=== PATIENT | female | born 1935 | race Caucasian/White ===

== ENCOUNTER → 2016-12-09 07:47 | Outpatient (CLI) | payer MEDICARE ==
[2016-07-17 13:24] VITALS: BMI 27.4
[~2016-12-09 07:47] MED LIST: AFRIN15 ML NS; ARTIFICIAL TEAR15 ML EACH EYE; ASMANEX0.135 GM INH; ASPIRIN 81 MG E81 MG PO; ATIVAN0.5 MG PO; ATIVAN1 MG PO; BAYER CHEWABLE81 MG PO; BENADRYL25 MG PO; BENICAR20 MG PO; BISCOLAX10 MG/SUPP RC; BUMEX 1 MG TAB1 MG PO; BUMEX2 MG PO; BUSPAR10 MG PO; BUSPIRONE HCL7.5 MG PO; CARDIZEM CD180 MG PO; CELEXA20 MG PO; CLARITIN 10 MG10 MG PO; COLACE100 MG PO; CYMBALTA60 MG PO; DEPAKOTE SPRIN125 MG PO; DEPAKOTE250 MG PO; DEXTROSE 50%/WA50 ML IV; DULCOLAX10 MG/SUPP RC; DUONEB 2.5-0.5 M3 ML UPD; DURAGESIC1 PATCH .1 TRANSDERM; DURAGESIC1 PATCH .4 TD; DURAGESIC1 PATCH .7 TD; EFFEXOR75 MG PO; FLAGYL 500500 MG/100 IV; FLAGYL500 MG; FLAGYL500 MG PO; FLORANEX / LACT1 TAB; FLORANEX / LACT1 TAB PO; GAS-X80 MG PO; GLUCAGON1 MG/KIT IM; GLUCAGON1 MG/KIT SQ; GUAIFENESI100 MG/5 M PO; HALDOL5 MG PO; HUMALOG 30100 UNITS/ SC; HYDROCODON-ACE1 EAC7 PO; HYDROCODONE-APA1 TAB PO; INSTA-GLUCOSE31 GM PO; IPRAT-ALBUT 0.5-3 ML NEB; IPRAT-ALBUT 0.5-3 ML UPD; K-DUR20 MEQ PO; KLONOPIN0.5 MG PO; KLOR-CON 1010 MEQ PO; LASIX40 MG PO; LEVAQUIN500 MG PO; LEVOTHROID200 MCG PO; LEVSIN/ANASP0.125 MG PO; LIDODERM 5 %1 PATCH TD; LIDODERM 5 %1 PATCH TRANSDERM; LIPITOR40 MG PO; LISINOPRIL10 MG PO; LOPRESSOR25 MG PO; LOVENOX30 MG/0.3 SQ; MAG-OX 400 MG400 MG PO; MAG-OXIDE400 MG PO; MEDI-NATURAL8.6 MG PO; MILK OF MAGNESI30 ML PO; MIRALAX17 GM PO; MIRAPEX0.25 MG PO; MIRAPEX1 MG PO; MOBIC7.5 MG PO; MUCINEX DM ER1 EAC1 PO; MUCINEX600 MG PO; MULTIPLE VITAMI1 TA1 PO; MYSOLINE 50 MG50 MG PO; NATURAL SENNA8.6 MG PO; NEURONTIN 300300 MG PO; NITRO-BID60 GM TP; NORCO 10/325 TA1 TA1 PO; NORCO 5/325 TAB1 TA1 PO; NORCO 7.5/325 T1 TA1 PO; NORVASC2.5 MG PO; NORVASC5 MG PO; OMNICEF300 MG PO; ONDANSETRON4 MG/2 M3 IV; OXYBUTYNIN CHLOR5 MG PO; OYSTER SHELL C1 EAC1 PO; PEPCID20 MG PO; PEPCID40 MG PO; PERFOROMIS20 MCG/21 INH; PLAVIX75 MG PO; PRAVACHOL20 MG PO; PRAVASTATIN SOD10 MG PO; PREDNISONE20 MG PO; PROTONIX40 MG PO; PROVENTIL HFA6.7 GM INH; PROVENTIL/2.5 MG/3 M INH; PROZAC40 MG PO; PULMICORT0.5 MG/21 UPD; REMERON15 MG PO; REQUIP1 MG PO; SALINE FLUSH10 ML IV; SENOKOT-S TABLE1 TAB PO; SEROQUEL25 MG PO; SINGULAIR10 MG PO; SODIUM CHLORIDE INH; SODIUM CL 0.91000 ML IV; STERAPRED DS 1210 MG NG; SYNTHROID100 MCG PO; SYNTHROID175 MCG PO; SYNTHROID200 MC1 PO; TESSALON PERLE100 MG PO; TUSSIONEX 5 ML S5 ML PO; ULTRACET TABLET1 TAB PO; ULTRAM50 MG PO; VIBRAMYCIN 100100 MG PO; VITAMIN B-121000 MCG PO; VITAMIN B-1250 MCG PO; VITAMIN D31000 UNI2 PO; VITAMIN D31000 UNIT PO; VITAMIN D5000 UNIT PO; XANAX0.5 MG PO; XANAX1 MG PO; ZESTRIL10 MG PO; ZESTRIL40 MG PO; ZOCOR10 MG PO; ZOFRAN4 MG PO; ZYLOPRIM100 MG PO; ZYPREXA2.5 MG PO
== END | disposition home or self-care (01) ==
LOC: D.CT 07:47
DX: R91.8 Other nonspecific abnormal finding of lung field (principal)

== ENCOUNTER → 2016-12-13 12:49 | Outpatient (CLI) | payer MEDICARE ==
[2016-07-17 13:24] VITALS: BMI 27.4
== END | disposition home or self-care (01) ==
LOC: D.RAD 11:00
DX: J44.9 Chronic obstructive pulmonary disease, unspecified (principal)

== ENCOUNTER → 2016-12-28 19:39 | Outpatient (CLI) | payer MEDICARE ==
[2016-07-17 13:24] VITALS: BMI 27.4
== END | disposition home or self-care (01) ==
LOC: D.SLEEP 19:39
DX: G47.33 Obstructive sleep apnea (adult) (pediatric) (principal)

== ENCOUNTER 2017-08-04 16:18 | Inpatient (IN) | payer MEDICARE ==
--- NOTE | 2017-08-04 17:45 | NUR ---
PATIENT ADMITTED TO [facility] AT 1730 THIS EVENING, SHE IS PLEASANT, SHE SAYS "I DON'T KNOW WHY I AM HERE, I GUESS THEY ARE JUST MAD AT ME." PATIENT THEN SAYS "WELL THEY WANTED TO MOVE ME AND I WAS FINE WHERE I WAS." PATIENT IS ADMITTED FRO AGGRESSION SHE APPARENTLY SCRATCHED ONE OF THE NURSES AND SHE BEGAN CURSING AND THREATENING TO HURT STAFF AND THREATENED TO RUN OFF TONIGHT. PATIENT DOES HAVE BRUISES TO HER RIGHT ARM AND A SKIN TEAR WITH A BAND AID ON HER LEFT WRIST. HER LEFT LEG HAS A BRUISE AND SHE HAS BILATERAL LOWER EDEMA PRIMARILY TO HER FEET AND ANKLES, LUZ BUTTOCKS AND BACK ARE CLEAR, NO SKIN ISSUES NOTED. PATIENT DID NOT COME WITH GLASSES, SHE DOES HAVE UPPER DENTURES ONLY.
[2017-08-04] MEDS ORDERED: VISINE15 ML EACH EYE (18:22)
[2017-08-04] MEDS ORDERED: FLUTICASONE PRO16 GM NASAL (18:24)
[2017-08-04] MEDS ORDERED: ATIVAN1 MG PO (18:25)
[2017-08-04] MEDS ORDERED: ANORO ELLIPTA1 EACH INH (18:29)
[2017-08-04 18:30] LABS: APPEARANCE CLEAR (CLEAR); BACTERIA MODERATE /hpf (NONE SEEN); BILIRUBIN NEGATIVE (NEGATIVE); COLOR YELLOW (YELLOW); GLUCOSE NEGATIVE (NEGATIVE); KETONE NEGATIVE (NEGATIVE); MUCUS <1+ /lpf (NONE SEEN); NITRITE NEGATIVE (NEGATIVE); PROTEIN NEGATIVE (NEGATIVE); RED CELLS - URINE 0-5 /hpf (0-5); SPECIFIC GRAVITY 1.015 (1.005-1.020); UROBILINOGEN NORMAL (NORMAL)
[2017-08-04 18:31] LABS: HYALINE CAST OCC /lpf (NONE SEEN)
[2017-08-04] MEDS ORDERED: MIRALAX17 GM PO (18:33)
[2017-08-04] MEDS ORDERED: MIRAPEX0.5 MG PO (18:34)
[2017-08-04] MEDS ORDERED: MUCINEX DM ER1 EAC1 PO (18:36)
[2017-08-04] MEDS ORDERED: HYDROCODONE-APA1 TAB PO (18:37)
[2017-08-04] MEDS ORDERED: OXYBUTYNIN CHLOR5 MG PO (18:38)
[2017-08-04] MEDS ORDERED: K-DUR20 MEQ PO (18:42)
[2017-08-04] MEDS ORDERED: PRAVACHOL20 MG PO (18:43)
[2017-08-04] MEDS ORDERED: PROTONIX40 MG PO (18:47)
[2017-08-04] MEDS ORDERED: TUMS500 MG PO (18:52)
[2017-08-04] MEDS ORDERED: ACETAMINOPHEN325 MG PO (18:53)
[2017-08-04] MEDS ORDERED: XARELTO20 MG PO (18:54)
[2017-08-04] MEDS ORDERED: VENTOLIN HFA18 GM INH (19:02)
[2017-08-04 19:11] VITALS: BP 135/70; BMI 25.8
[2017-08-04 19:29] LABS: BASOPHILS 0.1 % (0-2); EOSINOPHILS 1.5 % (0-7); HEMATOCRIT 35.7 % (36.0-48.0); HEMOGLOBIN 11.4 g/dL (12-16); IMMATURE GRANULOCYTES 0.1 % (0-5); LYMPHOCYTES 15.9 % (15-50); MCH 31.7 pg (26.0-34.0); MCHC 31.9 g/dL (31.0-37.0); MCV 99.2 fL (80.0-100.0); MONOCYTES 5.5 % (2-11); NEUTROPHILS 76.9 % (40-80); PLATELET COUNT 273 10x3/uL (130-400); RDW 15.7 % (11.5-14.5)
[2017-08-04 19:41] LABS: HEMOGLOBIN A1C 5.7 % (4.8-6.0)
[2017-08-04 19:51] LABS: ALBUMIN 3.8 g/dL (3.4-5.0); ANION GAP 12.6 mmol/L (8-16); BILIRUBIN - TOTAL 0.33 mg/dL (0.2-1.3); CARBON DIOXIDE 27.8 mmol/L (21.0-32.0); CHOL - HDL RATIO 2.2 ratio (2.3-4.1); CREATININE - SERUM 1.5 mg/dL (0.6-1.3); LDL-HDL RATIO 0.9 ratio (1.5-3.5); POTASSIUM - SERUM 4.4 mmol/L (3.5-5.1); PROTEIN - SERUM 6.9 g/dL (6.4-8.2); THYROID STIMULATING HORMONE 4.89 uIU/mL (0.36-3.74)
[2017-08-04 19:56] VITALS: BP 125/72
--- NOTE | 2017-08-05 04:23 | NUR ---
B) Patient is alert and oriented to self, complained of back pain and tried to put herself in the floor so she could lay down, anxious and restless, I) Administered scheduled medications, PRN [place] given at HS for back pain, redirected to lay on the couch not the floor, R) Medication compliant, very confused and needing constant monitoring for falls and safety. P) Continue plan of care.
[2017-08-05 06:43] VITALS: BMI 25.8
[2017-08-05 09:30] VITALS: BP 140/73
--- NOTE | 2017-08-05 09:37 | NUR ---
B) PATIENT IS UPSET, CRYING AND COMPLIANING THAT HER BACK HURTS, SHE DOESN'T WANT TO SIT IN THE RECLINER, SHE IS SAYING SHE WANTS TO SEE SOMEONE TO HELP HER, SHE SAYS "THEY MOVED ME OUT OF MY ROOM BECAUSE THEY WANTED MY ROOM" NO EXPLAINATION ABOUT GETTING ANOTHER ROOM CONSOLES HER, SHE IS DISTRAUGHT AND HAS HERSELF WORKED UP. PATIENT SELF PROPELS IN A W/C. I) PROVIDED PATIENT WITH A iCouch 10 PO NOW, WILL MONITOR. R) REMOVED PATIENT TO DINING ROOM SHE WAS GETTING LOUDER AND LOUDER WITHOUT BEING CONSOLED. PATIENT IS WITHIN EYE VIEW OF STAFF, PATIENT IS IN THE LINH CHAIR SO SHE CAN TRY TO RELAX AFTER PAIN MED. P) CONTINUE POC.
[2017-08-05 10:40] VITALS: BMI 25.7
[2017-08-05 19:58] VITALS: BP 92/54
--- NOTE | 2017-08-06 04:38 | NUR ---
B) Patient is alert and oriented to self and being in a hospital, complains of back pain and wanting to lay down, I) Administered scheduled medications, monitored for falls and for safety, redirected as needed. R) Medication compliant, needy and attention seeking at time, very concern whith her pain and condition. P) Continue plan of care,
--- NOTE | 2017-08-06 05:25 | NUR ---
PRN Tylenol 650 mg given for arm pain at 0500, patient upset she could not have [place].
[2017-08-06 06:13] LABS: RAPID PLASMA REAGIN Non Reactive (Non Reactive)
[2017-08-06 07:23] LABS: FOLATE (FOLIC ACID) - SERUM 4.4 ng/mL (>3.0)
--- NOTE | 2017-08-06 09:38 | NUR ---
B) PATIENT REFUSED HER MEDICATION THIS AM, SHE IS TRYING TO MANIPULATE STAFF TO GET WHAT SHE WANTS. SHE SAYS HER BACK HURTS THEN DOES NOT WANT WHAT SHE HAS ORDERED. SHE SAYS SHE WANTS TO LAY DOWN, BUT STAFF OFFER HER THE GERICHAIR AND SHE REFUSES. PATIENT CAN SELF PROPEL AND SHE CAN SLIDE HERSELF FROM THE CHAIR TO THE FLOOR. I) PROVIDE PRESCRIBED MEDS. R) PATIENT IS NONCOMPLIANT WITH MEDS TODAY. P) CONTINUE POC.
[2017-08-06 09:50] VITALS: BP 124/60
--- NOTE | 2017-08-06 12:17 | PSY ---
PATIENT NAME:ROSA MONREAL MEDICAL RECORD: [id number] : 31 LOCATION:[facility] ADMISSION DATE: 08/04/17 ACCOUNT: [id number] PSYCHIATRIC EVALUATION DATE OF EVALUATION: 08/05/17 Psychiatric Evaluation IDENTIFYING DATA: The patient is 82 years old and she is admitted to the hospital on a voluntary basis. CHIEF COMPLAINT: Aggression. HISTORY OF PRESENT ILLNESS: The patient lives in a local care home. She became agitated and scratched and clawed the nurse. They referred her to us because of that agitation. The patient reports a lot of restlessness and back pain and she is upset and crying, but she denies that she hit or scratched or attacked anyone. She denies psychotic symptoms. PAST MEDICAL HISTORY: Significant for hypertension, COPD, chronic back pain, asthma, congestive heart failure, angioplasty and atrial fibrillation. PAST PSYCHIATRIC HISTORY: Significant for depression and chronic anxiety. She also carries a diagnosis of dementia that I think is new, I am not sure when or how that was made. ALLERGIES: SULFA. CURRENT MEDICATIONS: Include Synthroid, Protonix, various inhalers, Bumex, Xarelto, Ditropan, MiraLax, gabapentin, Pravachol and metoprolol. SOCIAL HISTORY: The patient is . She is 82 years old. She does have adult family members who are involved with her care. She denies any history of substance abuse. It is unclear how well she functioned socially and occupationally. MENTAL STATUS EXAMINATION: The patient is awake, alert and oriented to person, place and somewhat to time and situation. Her mood is anxious. Her affect is constricted. Thought processes are very circumstantial and she is unable or unwilling to cooperate with formal mental status testing. Based on the interaction, I would deem her memory, concentration and abstraction abilities to be at least moderately impaired. She currently is denying any thoughts of harming herself or others and she denies psychotic symptoms. ASSETS: Stable living environment. LIABILITIES: Limited insight. DIAGNOSTIC IMPRESSION: AXIS I: Major depression, moderate severity without psychotic features, and vascular dementia. AXIS II: Deferred. AXIS III: Coronary artery disease, atrial fibrillation, congestive heart failure, hypothyroidism, hypertension and chronic obstructive pulmonary disease. AXIS IV: Moderate stressors. AXIS V: Global assessment of functioning is 35. PLAN: At this time, the patient is admitted to the hospital for a comprehensive medical, psychological, and social evaluation. She will be treated with both mood stabilizing and memory enhancing medications. Her long-term prognosis is guarded. TRANSINT:[id number] Voice Confirmation ID: [id number] DOCUMENT ID: [id number] IJEOMA MARX MD at 1217 CC: [id number] DICTATION DATE: 08/05/17 1225 HEALTH AND WELLNESS COACH: 08/05/17 1340 ADM IN [place] [id number] [place] [id number]
--- NOTE | 2017-08-06 15:44 | NUR ---
PATIENT REFUSED HER 1500 MEDS, EXPLAINED ONE PILL WAS FOR HER NREVES AND THE OTHER WAS FOR PAIN. NOW I HEAR PATIENT SAYING "OH, MY BACK." SHE IS STAYING BUSY DOING WORD FIND AND PLAYING THE GAME [employer].
--- NOTE | 2017-08-06 18:30 | NUR ---
PATIENT DID TAKE HER XARALTO THIS PM, BUT NO OTHER MEDS, SHE IS TEARFUL, SHE TRIED TO MAKE A PHONE CALL, BUT NO ONE ANSWERED, SHE IS UPSET ABOUT BEING MOVED OUT OF HER ROOM AT [facility], NO AMOUNT OF EXPLAINING AND TRYING TO CONSOLE HAS BEEN OF BENEFIT. NOW SHE IS SAYING SHE WANTS TO HIRE A GREENSKEEPER HER KIDS ARE TAKING ALL OF HER MONEY AND LIVING OFF OF HER. SPOKE WITH PATIENT THAT SHE DID NOT NEED TO GET HERSELF WORKED UP ABOUT IT THAT EVERYTHING WILL WORK OUT, SHE DID CALM SLIGHTLY.
[2017-08-06 20:37] VITALS: BP 110/58
[2017-08-06 20:55] VITALS: BP 110/58
--- NOTE | 2017-08-07 04:33 | NUR ---
B) Patient alert and oriented to self, restless at times wanting to return to bed and lay down, I) Administered scheduled medications, repositioned in bed for comfort, redirected as needed, R) Medication compliant, calmer this shift, resting quietly in bed. P) Continue plan of care.
[2017-08-07 07:00] VITALS: BP 127/61
--- NOTE | 2017-08-07 10:38 | NUR ---
ATIVAN 0.5MG IM TO RT.OUTER THIGH GIVEN FOR ANXIETY,CRYING,TEARS ON CHEEKS AND TRING TO SCOOT OUT OF RECLINER.
--- NOTE | 2017-08-07 14:58 | NUR ---
IS ORIENTED TO SELF AND HOSPITAL.CALM,RESTING QUIETLY THIS AFTERNOON BUT WAS VERY TEARFUL AND C/O OF PAIN THIS AM,HAD GOOD RESPONSE TO TRAMADOL AND ATIVAN.WILL CONTINUE WITH PLAN OF CARE,MONITOR FOR CHANGES AND SAFETY.IS COMPLIANT WITH MEDS.
[2017-08-07 20:07] LABS: VITAMIN D 25 HYDROXY 39.6 ng/mL (30.0-100.0)
[2017-08-07 20:50] VITALS: BP 124/95
--- NOTE | 2017-08-07 21:29 | NUR ---
RECEIVED IN HALLWAY SITTING OUTSIDE OF NURSES STATION WITH PEERS AT HER SIDE. CALM AND COOPERATIVE WITH CARE AND ASSESSMENTS. NO SIGNS OF AGGRESSION. ENCOURAGE TO EXPRESS NEEDS. RESTING EYES IN BED EYES CLOSED AT THIS TIME. CONTINUE PLAN OF CARE
--- NOTE | 2017-08-07 22:59 | NUR ---
Patient has been screaming out, complaining of bilateral leg pain. Yelling out the pain is so bad she can't sleep. Given Tylenol 650mg po PRN for pain 10+/10, given Ativan 0.5mg po PRN and Haldol 2mg po PRN for out of control verbal yelling and increasing anxiety. Will monitor for effectiveness.
[2017-08-08 06:57] LABS: HEMOGLOBIN 11.1 g/dL (12-16)
[2017-08-08 07:00] VITALS: BP 111/48
--- NOTE | 2017-08-08 13:00 | NUR ---
ASSESSMENT COMPLETED. MEDICATION COMPLIANT. CONTINUE PLAN OF CARE.
--- NOTE | 2017-08-08 13:45 | PN ---
PATIENT:ROSA MONREAL MEDICAL RECORD: [id number] LOCATION:[facility] ADMISSION DATE: 08/04/17 PROGRESS NOTE DATE OF SERVICE: 08/06/2017 SUBJECTIVE: The patient's case was discussed with staff. She has no new complaint. OBJECTIVE: The patient denies intent to harm herself or others. She is reporting a lot of back pain, but she went and took her morning medicines. She cannot seem to comprehend the inconsistency there and is still quite agitated. ASSESSMENT: No change in diagnoses. PLAN: It is difficult to address her symptoms and medicate them appropriately when she will only take her medicines intermittently. In fact, difficult is not the right word, it is impossible. I have tried to explain this to her as have the nursing staff. I worked with her in any way that is reasonable. I want to help her. Unfortunately, she just simply is not following through with what I am wanting to do. ASSESSMENT: No change in diagnoses. PLAN: Current medicines have been reviewed and will be maintained. extermination inspector prognosis is guarded. TRANSINT:[id number] Voice Confirmation ID: [id number] DOCUMENT ID: [id number] IJEOMA MARX MD at 1345 CC: [id number] DICTATION DATE: 08/06/17 1259 DATA MINER: 08/06/17 2030 ADM IN [place] [id number] [place] [address]
[2017-08-08 19:31] VITALS: BP 139/75
--- NOTE | 2017-08-08 23:34 | NUR ---
RECEIVED IN DAYROOM. SITTING IN WHEELCHAIR. ATTENTION SEEKING. PUT SELF INTO FLOOR. DEMANDING AMBULANCE TO BE CALLED. STATING SHE DOES NOT WANT TO STAY HERE. REFUESED TO ASSIST IN STANDING. HOLDING ONTO BOTTOM OF SOFA TO KEEP SELF ON FLOOR. STAFF LIFTED PATIENT FROM FLOOR INTO RECLINER. REDIRECT AND REORIENT NEEEDED. CONTINUE PLAN OF CARE.
--- NOTE | 2017-08-09 00:01 | NUR ---
PATIENT REFUSED PM MEDICATIONS . ENCOURAGEED TO TAKE MEDICATIONS BY MED NURSE BUT CONTINUED TO REFUSE
--- NOTE | 2017-08-09 01:10 | NUR ---
YELLING OUT IN BED. BECOMING INCREASINGLY ANXIOUS. ATTEMPTED TO GIVE PO ATIVAN, HALDOL, AND TYLENOL BUT REFUSED PO MEDICATIONS.
--- NOTE | 2017-08-09 01:27 | NUR ---
YELLING OUT. ATTEMPTING TO PUT HERSELF INTO FLOOR. PRN ATIVAN 0.5 MG IM AND PRN HALDOL 2 MG IM GIVEN FOR INCREASING ANXIETY AND PSYCHOTIC BEHAVIOURS.
[2017-08-09 09:21] VITALS: BP 116/54
--- NOTE | 2017-08-09 11:49 | NUR ---
oriented to person, place, and time. no aggression noted. pt is guarded at times but will answer questions when asked. pt c/o tiredness today and blood pressure is low. lopressor held. compliant with medications. fall precautions maintained. will continue to monitor and continue with plan of care.
--- NOTE | 2017-08-09 14:04 | PN ---
PATIENT:ROSA MONREAL MEDICAL RECORD: [id number] LOCATION:[facility] ADMISSION DATE: 08/04/17 PROGRESS NOTE DATE OF SERVICE: 08/08/2017 SUBJECTIVE: The patient's case was discussed with staff. She has no new complaint. OBJECTIVE: The patient is in poor behavioral control, very difficult to redirect and with limited insight. ASSESSMENT: No change in diagnoses. PLAN: The patient is going to be given Seroquel at a dose of 25 mg twice daily. Seroquel is being used to treat her underlying psychotic agitation. She will be monitored for clinical changes associated with its use. TRANSINT:[id number] Voice Confirmation ID: [id number] DOCUMENT ID: [id number] IJEOMA MARX MD at 1404 CC: [id number] DICTATION DATE: 08/08/17 1409 SCORER HELPER: 08/08/17 1435 ADM IN [place] [id number] [place] [address]
[2017-08-09 20:00] VITALS: BP 125/90
--- NOTE | 2017-08-09 20:57 | NUR ---
RECEIVED IN DAYROOM. SITTING IN RECLINING CHAIR. SOCIALIZING WITH A PEER AT TIMES. CALM AND COOPERATIVE WITH CARE AND ASSESSMENTS. NO SIGNS OF AGGRESSION. REDIRECT AND REORIENT NEEDED. RESTING IN BED EYES CLOSED AT THIS TIME. CONTINUE PLAN OF CARE
--- NOTE | 2017-08-09 23:00 | NUR ---
YELLING OUT. CONFUSED. ATTEMPT TO REDIRECT AND REORIENT BUT UNABLE. CONTINUES TO YELL OUT BECOMING INCREASINGLY ANXIOUS. PRM ATIVAN 0.5 MG IM AND HALDOL 2 MG IM GIVEN.
[2017-08-10 09:23] VITALS: BP 107/52
--- NOTE | 2017-08-10 11:56 | NUR ---
PT WAS VERY LETHARGIC THIS MORNING AND ALL MEDICATIONS WERE HELD DUE TO INABILITY OF PT TO STAY AWAKE TO TAKE MEDICATIONS. PT BEGAN TO WAKE UP SHE BECAME VERY TEARFUL AND CRYING WITH INCREASED ANXIETY. ATTEMPTED TO USE COPING SKILLS MULTIPLE TIMES WITHOUT ANY SUCCESS. PT WAS GIVEN A PO ATIVAN FOR HER ANXIETY. PT THANKED ME FOR THE MEDICATION. FALL PRECAUTIONS MAINTAINED. WILL CONTINUE TO MONITOR AND CONTINUE WITH PLAN OF CARE.
[2017-08-10 20:00] VITALS: BP 139/71
--- NOTE | 2017-08-11 02:44 | NUR ---
B) Patient is alert and oriented to self, attention seeking and needy, yelling out at times, I) Administered scheduled medications, monitored for safety R) Medication compliant, restless at times, P) Continue plan of care.
[2017-08-11 10:41] VITALS: BP 108/50
--- NOTE | 2017-08-11 12:49 | NUR ---
B) PATIENT HAS BEEN MORE COMPLIANT THIS AM, SHE IS AWAKE AND TAKING HER MEDS, SHE IS TRYING TO DRINK A LITTLE MORE FLUIDS. SHE HAS NOT YELLED OUT OR BEEN CRYING TODAY, SHE DID ASK FOR A PAIN PILL TWO HOURS AFTER SHE HAD ONE, BUT DID EXPLAIN THAT SHE CAN ONLY HAVE A PAIN PILL AT SCHEDULED TIMES, BUT THAT I WOULD BRING IT AT THE TIME IT IS DUE. SHE WAS OK WITH THIS STATEMENT, SHE DID NOT ARGUE, YELL OR CRY AT THIS TIME. I) PROVIDE PRESCRIBED MEDS. R) PATIENT IS COMPLIANT WITH MEDS, SHE INTERACTING MINIMALLY TODAY. P) CONTINUE POC.
--- NOTE | 2017-08-11 14:00 | NUR ---
RD follow up note. chart reviewed Decrease po intake on megace, b12, bumex, synthroid, bisacodyl. wt stable REC: offer supplement at meals, MVI with mineral. RD to follow
--- NOTE | 2017-08-11 14:10 | NUR ---
PATIENTS SON CALLED AND SAID HE COULD NOT VISIT HE HAS HAD THE STOMACH VIRUS SINCE TUESDAY. ASKED HIM TO PLEASE STAY HOME TO GET WELL AND NOT SPREAD THE VIRUS. HE ASKED ME TO TELL THE PATIENT THAT HE IS SORRY, BUT HE IS SICK. EXPLAINED TO HIM THAT I WOULD TELL HER.
--- NOTE | 2017-08-11 15:53 | NUR ---
WHILE PASSING MEDICATION TO PATIENT DID LET HER KNOW THAT HER SON IS NOT ABLE TO VISIT DUE TO A STOMACH VIRUS. PATIENT SAID "OH, I HOPE HE DOES NOT LOSE HIS SCHOLARSHIP" EXPLAINED TO HER THAT I BET HE WOULD NOT LOSE A SCHOLARSHIP, THAT HE IS SICK AND WANTED ME TO TELL HER HE LOVES HER AND DID NOT WANT HER TO FEEL NEGLECTED. PATIENT VERBALIZED UNDERSTANDING AND SAID "THANK YOU FOR TELLING ME."
[2017-08-11 20:02] VITALS: BP 106/53
--- NOTE | 2017-08-12 03:45 | NUR ---
B) Patient is alert and oriented to self and being in a hospital, calm and cooperative with care, I) Administered scheduled medications, PRN Tylenol 650 mg PO given for SIFUENTES at 01:13, R) Medication compliant, yells out at night at times P) Continue plan of care.
[2017-08-12 08:31] VITALS: BP 114/54
--- NOTE | 2017-08-12 11:57 | NUR ---
PT CONTINUES TO BE RESTLESS AND DEMANDING. NO AGGRESSION. NOTED. PT DOES HAVE PERIODS OF CRYING SPELLS. PT GETS UPSET WHEN SHE DOES NOT GET WHAT SHE WANTS. REDIRECTION DONE WHEN NEED TO APPROPRIATE BEHAVIOR. PT HAS LIMITED INSIGHT INTO REDIRECTION. FALL PRECAUTIONS MAINTAINED. WILL CONTINUE TO MONITOR AND CONTINUE WITH PLAN OF CARE.
[2017-08-12 19:30] VITALS: BP 112/58
--- NOTE | 2017-08-13 04:18 | NUR ---
B) Patient alert and oriented to self and hospital, calm and cooperative this shift, no yelling out at night noted this shift, I) Administered scheduled medications, monitored for safety R) Medications compliant, cooperative with staff, P) Continue plan of care.
[2017-08-13 08:00] VITALS: BP 105/50
--- NOTE | 2017-08-13 16:21 | NUR ---
ORIENTED TO PERSON,HOSPITAL,AND MONTH.NO SIGNS OF AGGRESSION OBSERVED TODAY.STATES BACK FEELS BETTER SITTING IN RECLINER.WILL CONTINUE WITH PLAN OF CARE,MONITOR FOR CHANGES AND SAFETY.IS COMPLIANT WITH MEDS.PROPELLS SELF IN WC.
[2017-08-13 19:30] VITALS: BP 134/60
--- NOTE | 2017-08-14 02:46 | NUR ---
B) Patient alert and oriented to self and hospital, restless and impatient at times, I) Administered scheduled medications, monitored for falls and safety R) Medications compliant, resting quietly in bed, P) Continue plan of care.
[2017-08-14 07:47] VITALS: BP 127/77
--- NOTE | 2017-08-14 18:16 | NUR ---
ORIENTED TO PERSON,HOSPITAL AND MONTH.NO AGGRESSION OBSERVED.COMPLIANT WITH MEDS AND STAFF.WILL CONTINUE WITH PLAN OF CARE,MONITOR FOR CHANGES AND SAFETY.
[2017-08-14 19:30] VITALS: BP 112/57
--- NOTE | 2017-08-14 21:01 | NUR ---
RECEIVED IN DAYROOM. SITTING IN RECLINING CHAIR. WITH PEERS AT HER SIDE. NOT SOCIALIZING AT THIS TIME. CALM AND COOPERATIVE WITH CARE AND ASSESSMENTS. NO SIGNS OF AGGRESSION. REDIRECT AND REORIENT NEEDED. CONTINUES TO SIT QUIETLY IN RECLINER. CONTINUE PLAN OF CARE
[2017-08-15 08:50] VITALS: BP 116/56
--- NOTE | 2017-08-15 10:33 | NUR ---
ORIENTED TO PERSON AND PLACE. PT DID GET TEARFUL DURING ASSESSMENT BUT POSITIVE REINFORCEMENT GIVEN. NO AGGRESSION NOTED. MEDICATIONS GIVEN ORDERED. FALL PRECAUTIONS MAINTAINED. WILL CONTINUE TO MONITOR AND CONTINUE WITH PLAN OF CARE.
[2017-08-15 19:53] VITALS: BP 118/58
--- NOTE | 2017-08-15 21:36 | NUR ---
RECEIVED IN DAYROOM. SITTING IN A RECLINER WITH PEERS AT HER SIDE. SOCIALIZING AT TIMES. CALM AND COOPERATIVE WITH CARE AND ASSESSMENTS. NO SIGNS OF AGGRESSION. REDIRECT AND REORIENT NEEDED. RESTING EYES CLOSED AT THIS TIME. CONTINUE PLAN OF CARE
[2017-08-16 07:00] VITALS: BP 119/41
--- NOTE | 2017-08-16 11:04 | NUR ---
B) PATIENT AWAKENS THIS AM CRYING AND YELLING, SAYING "YOU LIED TO ME" SHE ASKED DIRECTOR ORACLE DATABASE TO HELP SHE SAYS "I'M FALLING OUT OF THE BED" THEY SAID THEY CHECKED ON HER AND SHE IS LAYING IN THE MIDDLE OF THE BED AND NOT FALLING OUT. PATIENT NOW IS SITTING UP IN A LINH CHAIR, SHE IS WATCHFUL, BUT SHE IS NOT CRYING OR COMPLAINING. PATIENT CAN SELF PROPEL IN A W/C WHEN SHE IS IN ONE. I) PROVIDE PRESCRIBED MEDS. R) CONTINUE POC.
--- NOTE | 2017-08-16 13:38 | PN ---
PATIENT:ROSA MONREAL MEDICAL RECORD: [id number] LOCATION:[facility] ADMISSION DATE: 08/04/17 PROGRESS NOTE DATE OF SERVICE: SUBJECTIVE: The patient's case was discussed with staff. She has no new complaint. OBJECTIVE: The patient continues to yell and be quite agitated. She has very limited insight about her condition. ASSESSMENT: No change in diagnoses. PLAN: Supportive and educational interventions were made. The patient's long-term prognosis is guarded. I am going to increase her Seroquel to 25 mg 3 times daily in an effort to treat her underlying agitation. TRANSINT:[id number] Voice Confirmation ID: [id number] DOCUMENT ID: [id number] IJEOMA MRAX MD at 1338 CC: [id number] DICTATION DATE: 08/10/17 1257 PAPER CONE MACHINE OPERATOR: 08/10/17 1435 ADM IN [place] [id number] [place] [id number]
--- NOTE | 2017-08-16 13:38 | PN ---
PATIENT:ROSA MONREAL MEDICAL RECORD: [id number] LOCATION:[facility] ADMISSION DATE: 08/04/17 PROGRESS NOTE DATE OF SERVICE: 08/15/2017 SUBJECTIVE: The patient's case was discussed with staff. She has no new complaint. OBJECTIVE: The patient is in good behavioral control. She has limited insight about her condition. She tolerates her medicines well. ASSESSMENT: No change in diagnoses. PLAN: The patient is a little sedated in my opinion. I am going to reduce her Klonopin slightly. There is no doubt that she has been less distressed, anxious, and disruptive since starting it, but certainly I do not want her to continue something that is addictive and even in the short term I do not want her on this medication at a dose that is going to cause sedation. TRANSINT:[id number] Voice Confirmation ID: [id number] DOCUMENT ID: [id number] IJEOMA MARX MD at 1338 CC: [id number] DICTATION DATE: 08/15/17 1252 HAND SOLE SEWER: 08/15/17 1307 ADM IN [facility] [address] [place] [address]
--- NOTE | 2017-08-16 13:38 | PN ---
PATIENT:ROSA MONREAL MEDICAL RECORD: [id number] LOCATION:[facility] ADMISSION DATE: 08/04/17 PROGRESS NOTE DATE OF SERVICE: 08/09/2017 SUBJECTIVE: The patient's case was discussed with staff. She has no new complaint. OBJECTIVE: The patient is in good behavioral control with limited insight about her condition. She does tolerate her medicines well. Eye contact is fair. Concentration is fair. ASSESSMENT: No change in diagnoses. PLAN: The patient is going to be given Namenda to assist with her thought disorganization. She will be monitored for side effects associated with its use. Her long-term prognosis is guarded. TRANSINT:[id number] Voice Confirmation ID: [id number] DOCUMENT ID: [id number] IJEOMA MARX MD at 1338 CC: [id number] DICTATION DATE: 08/09/17 1431 STIFF LEG DERRICK OPERATOR: 08/09/17 194 ADM IN [facility] [address] [place] [address]
--- NOTE | 2017-08-16 13:38 | PN ---
PATIENT:ROSA MONREAL MEDICAL RECORD: [id number] LOCATION:[facility] ADMISSION DATE: 08/04/17 PROGRESS NOTE DATE OF SERVICE: 08/12/2017 SUBJECTIVE: The patient's case was discussed with staff. She has no new complaint. OBJECTIVE: The patient continues to have some disruptive behaviors. She is severely impaired cognitively. ASSESSMENT: No change in diagnoses. PLAN: Brief supportive and educational interventions were made. The patient's long-term prognosis is guarded. TRANSINT:[id number] Voice Confirmation ID: [id number] DOCUMENT ID: [id number] IJEOMA MARX MD at 1338 CC: [id number] DICTATION DATE: 08/12/17 1253 HUMAN RESOURCE MANAGER: 08/12/17 1425 ADM IN [address] [address]
--- NOTE | 2017-08-16 13:38 | PN ---
PATIENT:ROSA MONREAL MEDICAL RECORD: [id number] LOCATION:[facility] ADMISSION DATE: 08/04/17 PROGRESS NOTE DATE OF SERVICE: 08/11/2017 SUBJECTIVE: The patient's case was discussed with staff. She has no new complaint. OBJECTIVE: The patient is in good behavioral control with limited insight about her condition. She tolerates her medicines well. ASSESSMENT: No change in diagnoses. PLAN: The patient is not eating well. She will be given Megace to assist with appetite stimulation. Her long-term prognosis is guarded. Brief supportive and educational interventions were made. TRANSINT:[id number] Voice Confirmation ID: [id number] DOCUMENT ID: [id number] IJEOMA MARX MD at 1338 CC: [id number] DICTATION DATE: 08/11/17 1257 ARTIFICIAL PLASTIC EYE MAKER: 08/11/17 1313 ADM IN [facility] [address] [place] [address]
[2017-08-16 20:01] VITALS: BP 108/64
--- NOTE | 2017-08-16 21:52 | NUR ---
RECEIVED IN DAYROOM. SITTING IN RECLINER WITH PEERS AT HER SIDE. SOCIALIZING WITH PEERS AT TIMES. CALM AND COOPERATIVE WITH CARE AND ASSESSMENT. NO SIGNS OF AGGRESSION AT THIS TIME. RESTING IN BED WITH EYES CLOSED AT THIS TIME. CONTINUE PLAN OF CARE.
[2017-08-17 08:00] VITALS: BP 99/43
--- NOTE | 2017-08-17 13:25 | NUR ---
PT HAS BEEN COOPETAIVE WITH CARE. NO AGGRESSION NOTED. COPING SKILLS DISCUSSED WITH PT AND SHE STATED SHE WOULD TRY TO USE THEM WHEN SHE FELT UPSET. MEDICATIONS GIVEN ORDERED. FALL PRECAUTIONS MAINTAINED. WILL CONTINUE TO MONITOR AND CONTINUE WITH PLAN OF CARE.
--- NOTE | 2017-08-17 15:10 | NUR ---
RD f/u Chart reviewed Meds reviewed to include but not limited to megace, b12, kcl, GI-WDP. no new BM noted with last of 08/03. Pt consuming an average of 56% on 14 meals. No new wts. Pt noted to have Bruises on BUE and skin tear on L arm. no new changes at this time. Plan: continue to offer supplements if po consume <75% of meals, continue to send current diet, continue plan of care. RD to follow
--- NOTE | 2017-08-17 16:14 | PN ---
PATIENT:ROSA MONREAL MEDICAL RECORD: [id number] LOCATION:[facility] ADMISSION DATE: 08/04/17 PROGRESS NOTE DATE OF SERVICE: 08/16/2017 SUBJECTIVE: The patient's case was discussed with staff. She has no new complaint. OBJECTIVE: The patient is denying any thoughts of harming herself or others. She is oriented to person and place only. Her mood is flat. ASSESSMENT: No change in diagnoses. PLAN: The patient will be maintained on current medicines with the exception of the Seroquel that I am going to increase to 100 mg daily. I am planning to do this and then back her off of the Klonopin completely. It may be necessary to reduce the dose. Extra care will be taken regarding transfers and movement for the next few days since this may be a stronger dose than she can tolerate. TRANSINT:[id number] Voice Confirmation ID: [id number] DOCUMENT ID: [id number] IJEOMA MARX MD at 1614 CC: [id number] DICTATION DATE: 08/16/17 1354 BRANCH MANAGER TRAINEE: 08/16/17 1742 ADM IN [facility] [address] [place] [address]
[2017-08-17 20:51] VITALS: BP 100/51
--- NOTE | 2017-08-17 22:11 | NUR ---
RECEIVED IN BEDROOM WITH EYES OPEN. SOMATIC COMPLAINTS. CALM AND COOPERATIVE WITH CARE AND ASSESSMENT. NO SIGNS OF AGGRESSION. ENCOURAGE TO EXPRESS NEEDS. REDIRECT AND REORIENT NEEDED. RESTING IN BED WITH EYES CLOSED AT THIS TIME. CONTINUE PLAN OF CARE.
[2017-08-18 08:00] VITALS: BP 104/55
--- NOTE | 2017-08-18 13:28 | PN ---
PATIENT:ROSA MONREAL MEDICAL RECORD: [id number] LOCATION:[facility] ADMISSION DATE: 08/04/17 PROGRESS NOTE DATE OF SERVICE: 08/17/2017 SUBJECTIVE: The patient's case was discussed with staff. She has no new complaint. OBJECTIVE: The patient denies intent to harm herself or others. She does tolerate her medicines well. Eye contact is fair. ASSESSMENT: No change in diagnoses. PLAN: The patient slept well last night. I am going to taper her Klonopin a little bit more today. It is my intention to taper her off of it altogether and treat her with the Seroquel, which I do plan to move to twice daily dosing before discharge. TRANSINT:[id number] Voice Confirmation ID: [id number] DOCUMENT ID: [id number] IJEOMA MARX MD at 1328 CC: [id number] DICTATION DATE: 08/17/17 1654 BREAD WRAPPING MACHINE FEEDER: 08/17/17 2109 ADM IN [id number] [place] [address]
--- NOTE | 2017-08-18 18:00 | NUR ---
B) PATIENT IS AWAKE AND ALERT AND SHE IS MORE COOPERATIVE TODAY. SHE IS PLEASANT UNTIL THIS PM. SHE IS C/O PAIN AND TEARFUL. I) PROVIDE PRESCRIBED MEDS. R) PATIENT IS COMPLIANT WITH MEDS. P) CONTINUE POC.
[2017-08-18 19:58] VITALS: BP 117/64
--- NOTE | 2017-08-19 01:48 | NUR ---
B) Patient is alert and oriented to self and hospital, calm and cooperative this shift, I) Administered scheduled medications, monitored for safety R) Medication compliant, pleasant and friendly P) Continue plan of care.
[2017-08-19 08:36] VITALS: BP 106/50
--- NOTE | 2017-08-19 10:00 | NUR ---
B) PATIENT IS AWAKE AND ALERT, SHE IS CALM. SHE IS GOING HOME TODAY TO [place]. PATIENT CAN SELF PROPEL IN W/C. I) PROVIDE PRESCRIBED MEDS. R) PATIENT IS COMPLIANT WITH MEDS. P) CONTINUE POC.
--- NOTE | 2017-08-19 10:52 | NUR ---
SW ATTEMPTED TO CONTACT FAMILY ABOUT DISCHARGE TODAY AND COULD NOT LEAVE VM WITH NUMBER GIVEN.
[2017-08-19] MEDS ORDERED: MEGACE40 MG PO (11:33)
[2017-08-19] MEDS ORDERED: SEROQUEL25 MG PO (11:34)
[2017-08-19] MEDS ORDERED: NAMENDA5 MG PO (11:34)
--- NOTE | 2017-08-19 13:30 | NUR ---
PATIENT D/C'D TO [place] WITH BELONGINGS AND HARD COPIES OF MED REC. AND D/C ORDERS. ACCOUNTS PAYABLE PROFESSIONAL HERE ASSISTING HER TO GO HOME NOW.
--- NOTE | 2017-08-19 14:50 | NUR ---
REPORT CALLED TO ROSA.
--- NOTE | 2017-08-21 20:07 | PN ---
PATIENT:ROSA MONREAL MEDICAL RECORD: [id number] LOCATION:[facility] ADMISSION DATE: 08/04/17 PROGRESS NOTE DATE OF SERVICE: 08/19/2017 SUBJECTIVE: No new complaint. OBJECTIVE: Case management has made arrangements for discharge for patient later today. The patient is stable and is taking medications without difficulty. On exam, mood is for the most part euthymic and pleasant. Affect is bland. Speech is somewhat terse. Content of thought is negative for overt psychosis. Sensorium shows no change. ASSESSMENT: No change in diagnosis. PLAN: Anticipate discharge later today. TRANSINT:[id number] Voice Confirmation ID: [id number] DOCUMENT ID: [id number] RUFUS PEREZ III, MD at 2006 CC: [id number] DICTATION DATE: 08/19/17 1158 ANIMAL HUSBANDRY TECHNICIAN: 08/19/17 1324 DIS IN 08/19/17 [id number] [place] [address]
--- NOTE | 2017-08-22 13:43 | PN ---
PATIENT:ROSA MONREAL MEDICAL RECORD: [id number] LOCATION:[facility] ADMISSION DATE: 08/04/17 PROGRESS NOTE DATE OF SERVICE: 08/18/2017 SUBJECTIVE: The patient's case was discussed with staff. She has no new complaint. OBJECTIVE: The patient is in good behavioral control with poor insight about her condition. ASSESSMENT: No change in diagnoses. PLAN: Current medicines have been reviewed and will be maintained. Long-term prognosis is guarded. Brief supportive and educational interventions were made. I am going to reduce her scheduled Klonopin slightly. TRANSINT:[id number] Voice Confirmation ID: [id number] DOCUMENT ID: [id number] IJEOMA MARX MD at 1343 CC: [id number] DICTATION DATE: 08/18/17 1346 CATTLE ALLEY WORKER: 08/18/17 1424 DIS IN 08/19/17 [address] [place] [address]
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
== END 2017-08-19 13:30 | disposition home or self-care (01) | DRG 885 ==
LOC: D.PSYCH 16:18
PROVIDERS: Family Medicine; ADMIT Psychiatry & Neurology Psychiatry
DX: F32.1 Major depressive disorder, single episode, moderate (principal); I69.954 Hemiplegia and hemiparesis following unspecified cerebrovascular disease affecting left non-dominant side; I69.919 Unspecified symptoms and signs involving cognitive functions following unspecified cerebrovascular disease; F01.50 Vascular dementia, unspecified severity, without behavioral disturbance, psychotic disturbance, mood disturbance, and anxiety; E55.9 Vitamin D deficiency, unspecified; E53.8 Deficiency of other specified B group vitamins; R82.71 Bacteriuria; K59.00 Constipation, unspecified; G47.00 Insomnia, unspecified; K21.9 Gastro-esophageal reflux disease without esophagitis; D64.9 Anemia, unspecified; Z95.0 Presence of cardiac pacemaker; G20 Parkinson's disease; E78.5 Hyperlipidemia, unspecified; J44.9 Chronic obstructive pulmonary disease, unspecified; I11.0 Hypertensive heart disease with heart failure; I50.9 Heart failure, unspecified; E03.9 Hypothyroidism, unspecified; I48.91 Unspecified atrial fibrillation; I25.10 Atherosclerotic heart disease of native coronary artery without angina pectoris

== ENCOUNTER 2017-09-24 17:02 | Inpatient (IN) | payer MEDICARE ==
[~2017-09-24] VITALS: Ht 157.5 cm; Wt 52.6 kg
[~2017-09-24 17:02] MED LIST changes: +ACETAMINOPHEN325 MG PO; +ANORO ELLIPTA1 EACH INH; +FLUTICASONE PRO16 GM NASAL; +MEGACE40 MG PO; +MIRAPEX0.5 MG PO; +NAMENDA5 MG PO; +TUMS500 MG PO; +VENTOLIN HFA18 GM INH; +VISINE15 ML EACH EYE; +XARELTO20 MG PO
[2017-09-24] MEDS ORDERED: ZITHROMAX 500M500 MG IV (20:58)
[2017-09-24] MEDS ORDERED: MAXIPIME 1 GM/D51 G1 IV (21:05)
[2017-09-24] MEDS ORDERED: PROZAC40 MG PO (21:12)
[2017-09-24] MEDS ORDERED: FOLIC ACID1 MG PO (21:15)
[2017-09-24] MEDS ORDERED: NEURONTIN 300300 MG PO (21:16)
[2017-09-24] MEDS ORDERED: MUCINEX D1 TAB.SR . PO (21:21)
[2017-09-24] MEDS ORDERED: HYDROCODONE-APA1 TAB PO (21:23)
[2017-09-24] MEDS ORDERED: ATIVAN0.5 MG PO (21:25)
[2017-09-24] MEDS ORDERED: REMERON15 MG PO (21:27)
[2017-09-24] MEDS ORDERED: OXYBUTYNIN CHLOR5 MG PO (21:29)
[2017-09-24] MEDS ORDERED: MIRAPEX0.25 MG PO (21:31)
[2017-09-24] MEDS ORDERED: PRAVACHOL20 MG PO (21:32)
[2017-09-24 22:03] VITALS: BP 111/51
[2017-09-24 22:13] VITALS: BP 111/51; BMI 24.4
[2017-09-25 00:26] VITALS: BP 110/56
--- NOTE | 2017-09-25 01:00 | NUR ---
PATIENT RESTING COMFORTABLY, INTERMITTENTLY WAKING UP WITH PRODUCTIVE COUGH. SPUTUM IS YELLOWISH. PIV TO HER LEFT AC AREA IS PATIENT, IV ABX INFUSING FOLLOWED BY NS@30 TO MAINTAIN IT. 2LPM O2 VIA NC. BED ALARM IS ARMED. PATIENT HAD A LARGE, SOFT BM, WITH LARGE URINE OUTPUT. SHE TOLERATED PO MEDICATIONS WITH H2O WITH NO PROBLEMS. BED IN LOWEST LOCKED POSITION, HOB ELEVATED, WHEELS LOCKED, x2 BEDRAILS UP, NO SLIP SOCKS ON, REFUSED SCD AT THIS TIME, FALL PERCAUTIONS IN PLACE.
[2017-09-25 05:47] VITALS: BP 112/55
[2017-09-25 06:13] LABS: BASOPHILS 0 % (0-2); EOSINOPHILS 0.6 % (0-7); HEMATOCRIT 26.8 % (36.0-48.0); HEMOGLOBIN 8.4 g/dL (12-16); LYMPHOCYTES 19.1 % (15-50); MCH 31.3 pg (26.0-34.0); MCHC 31.3 g/dL (31.0-37.0); MEAN PLATELET VOLUME 10.2 fL (7.4-10.4); MONOCYTES 5.8 % (2-11); NEUTROPHILS 74.5 % (40-80); PLATELET COUNT 246 10x3/uL (130-400); RBC 2.68 10x6/uL (4.00-5.40); RDW 15.7 % (11.5-14.5); WBC 3.5 10x3/uL (4.8-10.8)
[2017-09-25 06:31] LABS: ALBUMIN 2.5 g/dL (3.4-5.0); ANION GAP 16.3 mmol/L (8-16); BILIRUBIN - TOTAL 0.31 mg/dL (0.2-1.3); CALCIUM 7.7 mg/dL (8.5-10.1); CARBON DIOXIDE 23.1 mmol/L (21.0-32.0); CREATININE - SERUM 1.3 mg/dL (0.6-1.3); POTASSIUM - SERUM 3.4 mmol/L (3.5-5.1); PROTEIN - SERUM 8.4 g/dL (6.4-8.2)
--- NOTE | 2017-09-25 08:05 | NUR ---
ASSESSMENT COMPLETE. IV TO L AC PATENT. NS INFUSING AT KVO VIA PUMP. LOOSE,NONPRODUCTIVE COUGH. O2 2L NC IN USE. BED ALARM IN USE. COMPLAINING OF NECK PAIN.
[2017-09-25 08:10] VITALS: BP 123/62
[2017-09-25 12:51] VITALS: BP 98/53
--- NOTE | 2017-09-25 12:59 | NUR ---
SPOKE WITH NURSE AT [facility] REGARDING DENTURES. PATIENT STATES SHE NEEDS HER UPPER TEETH TO EAT. NURSE WAS UNABLE TO LOCATE DENTURES IN PATIENT'S ROOM AT [facility]. PATIENT HAD BEEN GONE FOR PAST 2 WEEKS TO [facility] IN [place].
--- NOTE | 2017-09-25 14:31 | HP ---
PATIENT: ROSA FLANNERY MEDICAL RECORD: [id number] ACCOUNT: [id number] LOCATION:[facility] : 33 ADMISSION DATE: 09/24/17 HISTORY AND PHYSICAL EXAMINATION HISTORY OF PRESENT ILLNESS: Ms. Flannery is an 82-year-old lady who resides in a half-way that presented to [facility] yesterday with respiratory failure and hypoxia. CT of the abdomen shows probable infiltrate in the right lung base. She has been running fever, decreased oral intake. She was subsequently admitted and later found out that she was supposed to come to [place]. I accepted her as a transfer and she is here now. She is not much of an historian. She has some rales and rhonchi on exam right now. Her chest x-ray this morning reveals some interstitial lung markings and bibasilar airspace disease. Her white count is 3.5, H&H is 8.4 and 26.8 with a platelet count of 286. Her sodium is 138, potassium 3.4, BUN 29, and creatinine 1.3. PAST MEDICAL HISTORY: Significant for arthritis, apparent aspiration, asthma, bronchomalacia, CHF, COPD, history of deep venous thrombosis, hypertension, hypothyroidism, recent influenza, neuropathy, osteoporosis, pneumonia, and restless legs. PAST SURGICAL HISTORY: Include carotid stent, section, cholecystectomy, colectomy, hernia repair, knee replacement, pacemaker placement, spine surgery with kyphoplasty. ALLERGIES: SULFA. HOME MEDICATIONS: Include Megace 20mg b.i.d., albuterol updrafts, Anoro one puff daily, Xarelto 20 mg daily, metoprolol 25 b.i.d., pravastatin 20 mg a day, acetaminophen, Fluoxetine 40 a day, gabapentin 300 mg a day, [place] q.6 p.r.n., lorazepam 0.5 q.i.d., Namenda 5 mg b.i.d., mirtazapine 15 mg at bedtime, Mirapex 0.25 at bedtime, Seroquel 25 q.i.d., Bumex 2 mg daily, potassium 20 mEq daily, budesonide updrafts, Singulair 10 mg a day, guaifenesin/pseudoephedrine p.r.n., fluticasone 1 spray daily, Visine p.r.n., Dulcolax tabs p.r.n., calcium carbonate, Protonix 40 mg daily, MiraLax, levothyroxine 100 mcg a day, oxybutynin 5 mg b.i.d., vitamin D, vitamin B12, and folic acid. FAMILY HISTORY: Noncontributory. SOCIAL HISTORY: The patient is . Never smoked, never drank. REVIEW OF SYSTEMS: Really unobtainable and this is obtained from records from [facility]. No family is present at this time. PHYSICAL EXAMINATION: HEENT: Head is normocephalic, sclerae nonicteric. Mucous membranes look little dry. HEART: Regular. CHEST: Lungs with bilateral rhonchi. ABDOMEN: Soft. EXTREMITIES: Lower extremities reveal some venous insufficiency. IMPRESSION: Pneumonia, dementia, constipation, chronic obstructive pulmonary disease, chronic respiratory failure on O2, bronchomalacia, asthma, congestive heart failure, history of deep venous thrombosis on Xarelto, hypertension, HISTORY AND PHYSICAL [id number] ROSA FLANNERY hypothyroidism, osteoporosis, restless legs, and osteoarthritis. PLAN: Admit. We will get a swallow evaluation. Continue with IV antibiotics, pulmonary toilet. See orders for plan. TRANSINT:[id number] Voice Confirmation ID: [id number] DOCUMENT ID: [id number] VERONICA LOGAN DO at 1431 CC: [id number] DICTATION DATE: 09/25/17 1023 BOILER TESTER: 09/25/17 1100 ADM IN [id number] [place] [address]
--- NOTE | 2017-09-25 16:22 | NUR ---
RESTING QUIETLY WITH EYES CLOSED. RESP EVEN,NONLABORED.
--- NOTE | 2017-09-25 16:30 | NUR ---
O2 SAT 74-78% ON 2L NC. COMPLAINING OF "FEELING LIKE SOMETHING IS MOVING IN HER HEAD". STARING TO HER LEFT AT CEILING. OXIMIZER AT 12 L APPLIED BY RT. PRODUCUTIVE COUGH WITH THICK,YELLOW SPUTUM. 116/61 HR 89.
--- NOTE | 2017-09-25 16:32 | NUR ---
JERARDO ALCALA NOTIFIED OF CHANGES AND PATIENT COMPLAINTS. ORDER FOR STAT CHEST XRAY OBTAINED. O2 SATS 85-95%.
--- NOTE | 2017-09-25 16:37 | NUR ---
PT AWAKE DESATURATION IN 02.SP02 80 ON 2 LITERS. APPLIED OXIMIZER AT 12L PT SPO2 97 BILATERAL CRACKLES AND WHEEZES INSP, EXP UPON ASCULTATION NURSE NOTIFIED ORIENTATED X3 LOOSE NON PRODUCTIVE COUGH NOTED
--- NOTE | 2017-09-25 16:52 | NUR ---
STAT CXR PERFORMED.
[2017-09-25 16:55] VITALS: BP 134/62
--- NOTE | 2017-09-25 18:09 | NUR ---
16 SLOVENIAN WATT CATHETER INSERTED WITHOUT DIFFICULTY. IMMEDIATE RETURN OF YELLOW URINE.
[2017-09-25 22:33] VITALS: BP 134/77
--- NOTE | 2017-09-25 23:51 | NUR ---
PATIENT IS SLEEPING INTERMITTENTLY. SHE REQUEST UNTHICKENED WATER CONSTANTLY AND HAS BEEN INFORMED WHY SHE HAS TO HAVE THICKENED. SHE HAS NOT ATTEMPTED TO GET OF BED. WATT IN PLACE. NO NEEDS NOTED AT THIS TIME. BED IN LOWEST LOCKED POSITION, CALL LIGHT WITHIN REACH, x2 BEDRAILS UP, HOB ELEVATED 30, BED ALARM ON.
[2017-09-26 01:36] VITALS: BP 126/64
--- NOTE | 2017-09-26 03:00 | NUR ---
PT YELLING OUT FOR WATER OVER AND OVER. PT IS ORDERED THICKENED LIQUIDS AND REFUSES TO DRINK THE WATER. OFFERED HER THICKENED JUICE. PT DID DRINK A SMALL AMOUNT AND SETTLED DOWN.
[2017-09-26 05:04] VITALS: BP 136/70
[2017-09-26 05:16] LABS: BASOPHILS 0 % (0-2); EOSINOPHILS 0.6 % (0-7); HEMATOCRIT 26.9 % (36.0-48.0); HEMOGLOBIN 8.4 g/dL (12-16); IMMATURE GRANULOCYTES 0.3 % (0-5); LYMPHOCYTES 21.2 % (15-50); MCH 30.8 pg (26.0-34.0); MCHC 31.2 g/dL (31.0-37.0); MCV 98.5 fL (80.0-100.0); MONOCYTES 6.4 % (2-11); NEUTROPHILS 71.5 % (40-80); PLATELET COUNT 248 10x3/uL (130-400); RBC 2.73 10x6/uL (4.00-5.40); RDW 15.5 % (11.5-14.5); WBC 3.3 10x3/uL (4.8-10.8)
[2017-09-26 05:52] LABS: ALBUMIN 2.5 g/dL (3.4-5.0); ANION GAP 16.4 mmol/L (8-16); BILIRUBIN - TOTAL 0.22 mg/dL (0.2-1.3); CALCIUM 8.4 mg/dL (8.5-10.1); CARBON DIOXIDE 23.3 mmol/L (21.0-32.0); CREATININE - SERUM 1.1 mg/dL (0.6-1.3); POTASSIUM - SERUM 3.7 mmol/L (3.5-5.1); PROTEIN - SERUM 6.4 g/dL (6.4-8.2)
--- NOTE | 2017-09-26 08:14 | NUR ---
ASSESSMENT PER FLOW SHEET. PT WITHOUT DISTRESS,BUT WANTS WATER THAT IS NOT THICKENED.FALL PREVENTION IN PLACE WITH BED ALARM ON AND FUNCTIONING. DOOR OPEN
[2017-09-26 08:21] VITALS: BP 209/122
[2017-09-26 13:28] VITALS: BP 140/84
--- NOTE | 2017-09-26 15:00 | NUR ---
Patient Name: ROSA MONREAL Admission Status: Elective Accout number: [id number] Admission Date: 09-24-2017 : 1933 Admission Diagnosis: Attending: VERONICA LOGAN Current LOS: 2 Anticipated DC Date: Planned Disposition: Primary Insurance: MEDICARE A & B Discharge Planning Comments: CM spoke with patient's son about discharge planning needs. Son (Good) stated that his mom has been admitted from [facility]. She has been to 6 different places and has had issues with all of them He said that they have contacted [place] lady who [place] and they were meeting with her tomorrow to try to get his mom placed there. He would be in touch with me. Patient has a hospital bed, CPAP, wheelchair, o2 at times per son. CM will continue to follow and assist with discharge planning needs. PCP: Jacky caldera on [address] Good Davila (son) [phone] [employer]: Dorene Frederick * Is the patient Alert and Oriented? Yes 0 * PCP JACKY 0 * [facility]. 0 * Preadmission Environment Acute Care Facility 0 * Facility Name [facility] 0 * ADLs Total Dependent 0 * List name and contact numbers for known caregivers / representatives who currently or will assist patient after discharge: GOOD PATTERSON (SON) [phone] 0 * Additional services required to return to the preadmission environment? Yes 0 * Can the patient safely return to the preadmission environment? Yes 0 * Has this patient been hospitalized within the prior 30 days at any hospital? No 0 Grand Total: 0
[2017-09-26 16:13] VITALS: BP 161/78
--- NOTE | 2017-09-26 23:06 | NUR ---
1944) REC'D. AT [facility] [place]. OF SHIFT UPSET 'STATES MY NEBULIZER IS LATE I'VE NOT HAD IT SINCE THIS MORNING. INSTRUCTED THIS ADMISSION THIS TX. IS ORDERED NEEDED AND NOT SCHEDULED. DISCUSSED WITH TOM FROM [facility]P. TX. GIVEN REQUESTED
[2017-09-27] VITALS: BP 134/69
--- NOTE | 2017-09-27 01:15 | NUR ---
PT RESTING QUIETLY AT THIS TIME. NO DISTRESS NOTED. IV LEFT AC NS KVO. WATT TO BEDSIDE. CALL LIGHT IN REACH, BED ALARM ON. WILL CONTINUE TO MONITOR.
[2017-09-27 01:48] VITALS: BP 186/76
[2017-09-27 04:00] VITALS: BP 153/74
[2017-09-27 06:06] LABS: BASOPHILS 0 % (0-2); EOSINOPHILS 0.2 % (0-7); HEMATOCRIT 28.8 % (36.0-48.0); HEMOGLOBIN 9.3 g/dL (12-16); IMMATURE GRANULOCYTES 0.2 % (0-5); LYMPHOCYTES 15.4 % (15-50); MCH 31.4 pg (26.0-34.0); MCHC 32.3 g/dL (31.0-37.0); MCV 97.3 fL (80.0-100.0); MEAN PLATELET VOLUME 10.2 fL (7.4-10.4); MONOCYTES 9.5 % (2-11); NEUTROPHILS 74.7 % (40-80); PLATELET COUNT 248 10x3/uL (130-400); RBC 2.96 10x6/uL (4.00-5.40); RDW 15.1 % (11.5-14.5); WBC 4.1 10x3/uL (4.8-10.8)
[2017-09-27 06:54] LABS: ALBUMIN 2.4 g/dL (3.4-5.0); BILIRUBIN - TOTAL 0.5 mg/dL (0.2-1.3); CALCIUM 8.6 mg/dL (8.5-10.1); CARBON DIOXIDE 22.9 mmol/L (21.0-32.0); PROTEIN - SERUM 6.6 g/dL (6.4-8.2)
[2017-09-27 06:55] LABS: ANION GAP 17.2 mmol/L (8-16); POTASSIUM - SERUM 3.1 mmol/L (3.5-5.1)
--- NOTE | 2017-09-27 07:38 | NUR ---
REPORT RECEIVED FROM ALARM INSTALLATION TECHNICIAN NURSE. CALL LIGHT IN REACH.
--- NOTE | 2017-09-27 08:40 | NUR ---
ASSESSMENT COMPLETED. SCDs TO BLE. BED ALARM ON. CALL LIGHT IN REACH. WILL CONTINUE WITH PLAN OF CARE.
--- NOTE | 2017-09-27 09:05 | NUR ---
LYING IN BED,WITHOUT DISTRESS. CALL LIGHT IN REACH
[2017-09-27 09:40] VITALS: BP 151/71
--- NOTE | 2017-09-27 10:52 | NUR ---
APPEARS TO BE BETTER TODAY. WAS NOT PERSEVERATING ON "COLD WATER". PT WAS SMILING AND ATTEMPTING TO TELL STORY ABOUT THE CUPS SITTING ON HER TABLE. ATTEMPTED BED MOB AND CONT TO REQUIRE MAX ASSIST; AROM EXS WITH B UES..A/AROM FOR L SHOULDER FLEX.
--- NOTE | 2017-09-27 11:13 | NUR ---
CEFEPIME IVPB. REFUSES ORAL MEDS. CALL LIGHT IN REACH.
--- NOTE | 2017-09-27 12:50 | NUR ---
NO NEEDS VOICED AT THIS TIME. CALL LIGHT IN REACH.
[2017-09-27 14:01] VITALS: Ht 157.5 cm; Wt 52.6 kg
--- NOTE | 2017-09-27 14:23 | NUR ---
STILL REFUSING MEDS AT THIS TIME.
--- NOTE | 2017-09-27 16:20 | NUR ---
STILL REFUSING HER MEDS AT THIS TIME
--- NOTE | 2017-09-27 16:20 | NUR ---
STATES SHE STILL DOES NOT WANT TO TAKE HER MEDS.
[2017-09-27 17:46] VITALS: BP 157/74
--- NOTE | 2017-09-27 18:14 | NUR ---
EVENING MEDS ADMINISTERED. NO OTHER CHANGES IN INITIAL ASSESSMENT. CALL LIGHT IN REACH. SCDs TO BLE. WILL CONTINUE WITH PLAN OF CARE.
[2017-09-27 20:00] VITALS: BP 152/73
[2017-09-28 04:00] VITALS: BP 159/73
[2017-09-28 06:13] LABS: BASOPHILS 0.2 % (0-2); EOSINOPHILS 0.2 % (0-7); HEMATOCRIT 28.5 % (36.0-48.0); IMMATURE GRANULOCYTES 0.2 % (0-5); LYMPHOCYTES 13.3 % (15-50); MCH 30.8 pg (26.0-34.0); MCHC 31.6 g/dL (31.0-37.0); MCV 97.6 fL (80.0-100.0); MEAN PLATELET VOLUME 9.8 fL (7.4-10.4); MONOCYTES 6.9 % (2-11); NEUTROPHILS 79.2 % (40-80); PLATELET COUNT 240 10x3/uL (130-400); RBC 2.92 10x6/uL (4.00-5.40)
[2017-09-28 06:42] LABS: ALBUMIN 2.4 g/dL (3.4-5.0); BILIRUBIN - TOTAL 0.5 mg/dL (0.2-1.3); CALCIUM 8.8 mg/dL (8.5-10.1); CARBON DIOXIDE 23.7 mmol/L (21.0-32.0); MAGNESIUM - SERUM 1.7 mg/dL (1.8-2.4); PHOSPHOROUS 2.7 mg/dL (2.5-4.9); PROTEIN - SERUM 6.5 g/dL (6.4-8.2)
[2017-09-28 06:46] LABS: WBC 5.4 10x3/uL (4.8-10.8)
[2017-09-28 06:51] LABS: ANION GAP 16.3 mmol/L (8-16)
--- NOTE | 2017-09-28 06:53 | NUR ---
PT ON A [id number]% NO S/S RESP DISTRESS
--- NOTE | 2017-09-28 07:04 | NUR ---
REPORT RECEIVED FROM SERVICE ORDER CLERK NURSE. CALL LIGHT IN REACH.
--- NOTE | 2017-09-28 07:47 | NUR ---
PATIENT IN BED WITH NO COMPLAINTS. IV INTACT. POWDER LOADER AT BEDSIDE. CALL LIGHT WITHIN REACH.
[2017-09-28 08:29] VITALS: BP 174/57
--- NOTE | 2017-09-28 08:55 | NUR ---
ASSESSMENT COMPLETES. SCDs TO BLE. BED ALARM ON. CALL LIGHT IN REACH. WILL CONTINUE WITH PLAN OF CARE.
--- NOTE | 2017-09-28 10:24 | NUR ---
REFUSED ALL ORAL MEDS.
--- NOTE | 2017-09-28 10:49 | NUR ---
OT NOTE: PERFORMED A/AROM EXS FOR R UE; PROM FOR L SHOULDER AND AROM TO REMAINDER OF L UE JOINTS. PT REPORTED FEELING NAUSEOUS AND THEN BEGAN TO ASK FOR ICE WATER AGAIN. EASILY REDIRECTED TODAY. BED MOB TRAINING WITH MAX ASSIST. RADHA STYLES, OTR/L
--- NOTE | 2017-09-28 11:32 | NUR ---
PATIENT IN BED WITH EYES CLOSED RESTING QUIETLY. NO COMPLAINTS OR SIGNS OF DISTRESS. CALL LIGHT WITHIN REACH.
[2017-09-28 12:26] VITALS: BP 119/76
--- NOTE | 2017-09-28 12:43 | NUR ---
ELECTROLYTE PROTOCOL INITIATED. CALL LIGHT IN REACH.
--- NOTE | 2017-09-28 14:34 | NUR ---
STILL REFUSES TO TAKE HER ORAL MEDS.
[2017-09-28 15:50] VITALS: BP 133/71
--- NOTE | 2017-09-28 16:23 | NUR ---
2ND BAG OF KCL INFUSING. WILL CONTINUE TO MONITOR IV SITE FOR REDNESS OR SWELLING.
--- NOTE | 2017-09-28 17:25 | NUR ---
LASIX 20 MG SIVP. STILL REFUSING TO TAKE ORAL MEDS. STAT LOCK CHANGED AND DATER.
--- NOTE | 2017-09-28 18:48 | NUR ---
NO CHANGES IN INITIAL ASSESSMENT. SCDs TO BLE. BED ALARM ON. CALL LIGHT IN REACH. WILL CONTINUE WITH PLAN OF CARE.
--- NOTE | 2017-09-28 19:47 | NUR ---
OT THERAPY: PT COMPLETED ESTEPHANIA HARRIS FOR INCREASED AX TOLERANCE. PT COMPLETED SIMPLE GROOMING WITH WITH NILSON Moncada THANK YOU, MARIBEL MARTINEZ/Hui
[2017-09-28 20:00] VITALS: BP 114/66
[2017-09-29] VITALS: BP 110/48
--- NOTE | 2017-09-29 01:09 | NUR ---
2000)REC'D. [facility], OF SHIFT.IN BED SUPINE POSITION EYES CLOSED RESP. DEEP AND EVEN. OXIMIZER INTACT AT 7L.WILL CONTINUE TO MONITOR FOR ANY CHGES. IN RESP. STATUS AND FOLLOW CURRENT PLAN OF CARE.WATT PATENT DRAINING DRAINING LITE YELLOW COLORED URINE.BED ARMED.
--- NOTE | 2017-09-29 02:00 | NUR ---
PT IN BED WITH NO DISTRESS. RESPIRATIONS EVEN AND UNLABORED. SIDE RAILS X 2. BED LOW. CALL LIGHT IN REACH.
[2017-09-29 04:00] VITALS: BP 138/74
[2017-09-29 05:14] LABS: BASOPHILS 0.4 % (0-2); EOSINOPHILS 0.2 % (0-7); HEMATOCRIT 29.2 % (36.0-48.0); HEMOGLOBIN 9.5 g/dL (12-16); IMMATURE GRANULOCYTES 0.4 % (0-5); LYMPHOCYTES 19.8 % (15-50); MCH 31.7 pg (26.0-34.0); MCHC 32.5 g/dL (31.0-37.0); MCV 97.3 fL (80.0-100.0); MEAN PLATELET VOLUME 9.9 fL (7.4-10.4); MONOCYTES 10.2 % (2-11); RDW 14.7 % (11.5-14.5); WBC 5.2 10x3/uL (4.8-10.8)
[2017-09-29 05:19] LABS: PLATELET COUNT 295 10x3/uL (130-400)
[2017-09-29 05:39] LABS: ALBUMIN 2.7 g/dL (3.4-5.0); ANION GAP 16.3 mmol/L (8-16); BILIRUBIN - TOTAL 0.49 mg/dL (0.2-1.3); CARBON DIOXIDE 26.3 mmol/L (21.0-32.0); CREATININE - SERUM 0.9 mg/dL (0.6-1.3); PROTEIN - SERUM 7.1 g/dL (6.4-8.2)
[2017-09-29 05:40] LABS: POTASSIUM - SERUM 3.6 mmol/L (3.5-5.1)
--- NOTE | 2017-09-29 07:04 | NUR ---
REPORT RECEIVED FROM MULTIPLE KNIFE EDGE TRIMMER OPERATOR NURSE. CALL LIGHT IN REACH.
[2017-09-29 08:08] VITALS: BP 129/65
--- NOTE | 2017-09-29 09:08 | NUR ---
ASSESSMENT COMPLETED. SCDs TO BLE. ALARM ON. CALL LIGHT IN REACH. WILL CONTINUE WITH PLAN OF CARE.
--- NOTE | 2017-09-29 10:22 | NUR ---
OT NOTE: PT CONTINUALLY REQUESTING COLD WATER AGAIN. REDIRECTED PT WITH ADLS TO INCLUDE CLEANING MOUTH WITH COLD CLOTH TO REMOVE EXCESS SKIN FROM LIPS AND TONGUE. PERFORMED BED BATH AND PT WAS ABLE TO CLEAN FACE, CHEST , AND ARMS WITH CLOTH AND SET UP. REQUIRED EXT ASSIST WITH UNDERARMS, LEGS , AND PERINEAL AREA. PRACTICED BED MOB WITH MIN/MOD ASSIST FOR ROLLING SIDE TO SIDE; MAX ASSIST FOR SUPINE TO SIT. PT REPORTED BEING VERY HOT AND PROVIDED COLD CLOTH TO FOREHEAD. NO MORE NEEDS REQUESTED AT THIS TIME.
--- NOTE | 2017-09-29 11:20 | NUR ---
NO DISTRESS NOTED AT THIS TIME. CALL LIGHT IN REACH. BED ALARM ON.
[2017-09-29 12:22] VITALS: BP 119/50
--- NOTE | 2017-09-29 13:19 | NUR ---
MEDS ADMINISTERED PER ORDER. CALL LIGHT IN REACH.
--- NOTE | 2017-09-29 13:43 | NUR ---
NUTRITION F/U CHART REVIEWED, PT VISIT(SLEEPING). PUREED DIET WITH HONEY THICK LIQUIDS. CONTINUES POOR PO INTAKE. ONLY ~ 10% INTAKE LUNCH. RD FOLLOWING
--- NOTE | 2017-09-29 15:37 | NUR ---
STATES SHE WILL NOT TAKE TESSALON PERLES UNLESS SHE HAS COLD WATER OR A DRScot CHO WITH NO THICKENER. EXPLAINED TO PATIENT THAT SHE HAS TO HAVE THICKENER OR SHE WILL ASPIRATE. SHE STILL REFUSES TO TAKE MEDS OR DRINK ANYTHING AT THIS TIME.
[2017-09-29 16:01] VITALS: BP 162/89
--- NOTE | 2017-09-29 16:20 | NUR ---
DR. GALVAN IN ROOM TO SPEAK WITH PATIENT.
--- NOTE | 2017-09-29 18:27 | NUR ---
SPEECH THERAPIST AT BEDSIDE GOING OVER EXERCISES WITH PATIENT.
--- NOTE | 2017-09-29 19:53 | NUR ---
OT NOTE: PT COMPLETED UE POSITIONING FOR DECREASED RISK OF SKIN BREAK. PT COMPLETED HYGIENE TASK WITH MIN A SECONDARY TO CONFUSION. THANK YOU, MARIBEL MARTINEZ/Hui
[2017-09-29 20:00] VITALS: BP 145/76
[2017-09-30 00:43] VITALS: BP 168/85
[2017-09-30 04:00] VITALS: BP 160/89
[2017-09-30 06:13] LABS: BASOPHILS 0 % (0-2); EOSINOPHILS 0 % (0-7); HEMOGLOBIN 9.6 g/dL (12-16); IMMATURE GRANULOCYTES 0.7 % (0-5); LYMPHOCYTES 12.6 % (15-50); MCH 31.3 pg (26.0-34.0); MCV 97.7 fL (80.0-100.0); MEAN PLATELET VOLUME 10.2 fL (7.4-10.4); MONOCYTES 3.5 % (2-11); NEUTROPHILS 83.2 % (40-80); PLATELET COUNT 339 10x3/uL (130-400); RBC 3.07 10x6/uL (4.00-5.40); WBC 5.4 10x3/uL (4.8-10.8)
[2017-09-30 06:43] LABS: ALBUMIN 2.8 g/dL (3.4-5.0); ANION GAP 17.2 mmol/L (8-16); BILIRUBIN - TOTAL 0.4 mg/dL (0.2-1.3); CALCIUM 8.9 mg/dL (8.5-10.1); CARBON DIOXIDE 25.2 mmol/L (21.0-32.0); CREATININE - SERUM 0.9 mg/dL (0.6-1.3); POTASSIUM - SERUM 3.4 mmol/L (3.5-5.1); PROTEIN - SERUM 7.5 g/dL (6.4-8.2)
--- NOTE | 2017-09-30 07:15 | NUR ---
REPORT RECEIVED FROM ENGINEERING AGENT NURSE. CALL LIGHT IN REACH.
[2017-09-30 08:23] VITALS: BP 169/82
--- NOTE | 2017-09-30 08:40 | NUR ---
ASSESSMENT COMPLETED. SCDs TO BLE. KAUR MAT ALARM IS ON. CALL LIGHT IN REACH. WILL CONTINUE WITH PLAN OF CARE.
--- NOTE | 2017-09-30 10:20 | NUR ---
REFUSES ORAL MEDS AGAIN. CALL LIGHT IN REACH.
--- NOTE | 2017-09-30 11:30 | NUR ---
IV MEDS ADMINISTERED PER ORDER. CALL LIGHT IN REACH.
[2017-09-30 12:34] VITALS: BP 166/84
--- NOTE | 2017-09-30 13:20 | NUR ---
NO DISTRESS NOTED AT THIS TIME. CALL LIGHT IN REACH.
--- NOTE | 2017-09-30 15:50 | NUR ---
RESTING QUIETLY IN BED WITH EYES CLOSED. NO NEEDS EXPRESSED.
[2017-09-30 16:29] VITALS: BP 165/84
--- NOTE | 2017-09-30 17:43 | NUR ---
LASIX 20 MG SIVP. CALL LIGHT IN REACH.
--- NOTE | 2017-09-30 18:55 | NUR ---
NO CHANGES IN INITIAL ASSESSMENT. CALL LIGHT IN REACH. SCDs TO BLE. BED ALARM ON. WILL CONTINUE WITH PLAN OF CARE.
[2017-09-30 20:00] VITALS: BP 168/83
[2017-10-01 04:00] VITALS: BP 159/89
[2017-10-01 05:44] LABS: BASOPHILS 0 % (0-2); EOSINOPHILS 0 % (0-7); HEMATOCRIT 27.1 % (36.0-48.0); HEMOGLOBIN 8.8 g/dL (12-16); IMMATURE GRANULOCYTES 1.3 % (0-5); LYMPHOCYTES 14.2 % (15-50); MCH 31.8 pg (26.0-34.0); MCHC 32.5 g/dL (31.0-37.0); MCV 97.8 fL (80.0-100.0); MEAN PLATELET VOLUME 9.9 fL (7.4-10.4); MONOCYTES 6.2 % (2-11); NEUTROPHILS 78.3 % (40-80); PLATELET COUNT 325 10x3/uL (130-400); RBC 2.77 10x6/uL (4.00-5.40); RDW 14.9 % (11.5-14.5)
[2017-10-01 05:47] LABS: WBC 7.1 10x3/uL (4.8-10.8)
[2017-10-01 06:17] LABS: ALBUMIN 2.7 g/dL (3.4-5.0); ANION GAP 18.2 mmol/L (8-16); BILIRUBIN - TOTAL 0.52 mg/dL (0.2-1.3); CALCIUM 8.8 mg/dL (8.5-10.1); CARBON DIOXIDE 23.8 mmol/L (21.0-32.0); CREATININE - SERUM 0.9 mg/dL (0.6-1.3); PROTEIN - SERUM 6.9 g/dL (6.4-8.2)
--- NOTE | 2017-10-01 08:00 | NUR ---
ASSESSMENT PER FLOW SHEET.PT VERY UNCOOPERATIVE. REFUSES TO DRINK THICKENED WATER SPITTING AND POURING IT EVERYWHERE.PT EASY TO ANGER.FALL PREVENTION IN PLACE.MONITOR FOR NEEDS
[2017-10-01 08:40] VITALS: BP 158/70
--- NOTE | 2017-10-01 09:00 | NUR ---
PT REFUSING MEDS AND THICKENED WATER.PT GETS QUIET AND TURNS FACE AWAY WHEN SPOKE TO.
[2017-10-01 10:22] LABS: MAGNESIUM - SERUM 2.1 mg/dL (1.8-2.4); PHOSPHOROUS 2.7 mg/dL (2.5-4.9)
[2017-10-01 12:11] VITALS: BP 152/68
[2017-10-01 15:44] VITALS: BP 97/68
--- NOTE | 2017-10-01 15:55 | NUR ---
TO SEE PT.SHE IS STILL NOT TAKING MEDS, AWARE.LOVENOX ORDERED FOR DVT PREVENTION. MONITOR
--- NOTE | 2017-10-01 18:11 | NUR ---
REMAINS WITHOUT CHANGE FROM INITIAL SHIFT ASSESSMENT.CONT PLAN OF CARE
--- NOTE | 2017-10-01 19:46 | NUR ---
PATIENT RESTING IN BED WITH C/O BEING COLD. BROUGHT PT AN EXTRA BLANKET. BED IN LOWEST POSITION, CALL LIGHT WITHIN REACH, AND BED ALARM ON. ENCOURAGED THE PATIENT TO CALL IF SHE HAS NEEDS.
[2017-10-01 20:00] VITALS: BP 113/76
--- NOTE | 2017-10-01 22:49 | NUR ---
PATIENT COMPLAINED OF BEING THIRSTY. I ATTEMPTED TO GIVE THE PATIENT THICKENED WATER, THICKENED APPLE JUICE, AND JELLO. PATIENT SPIT ALL THREE OUT AND CONTINUED TO STATE "NO WATER"
[2017-10-02] VITALS: BP 136/80
[2017-10-02 04:00] VITALS: BP 141/81
[2017-10-02 05:24] LABS: BASOPHILS 0 % (0-2); EOSINOPHILS 0 % (0-7); HEMATOCRIT 27.2 % (36.0-48.0); HEMOGLOBIN 8.7 g/dL (12-16); IMMATURE GRANULOCYTES 0.8 % (0-5); LYMPHOCYTES 16.6 % (15-50); MCH 31.1 pg (26.0-34.0); MCV 97.1 fL (80.0-100.0); MEAN PLATELET VOLUME 9.8 fL (7.4-10.4); NEUTROPHILS 72.6 % (40-80); PLATELET COUNT 340 10x3/uL (130-400); RDW 14.5 % (11.5-14.5); WBC 6.3 10x3/uL (4.8-10.8)
[2017-10-02 06:15] LABS: ALBUMIN 2.9 g/dL (3.4-5.0); ANION GAP 18.1 mmol/L (8-16); BILIRUBIN - TOTAL 0.48 mg/dL (0.2-1.3); CARBON DIOXIDE 24.4 mmol/L (21.0-32.0); CREATININE - SERUM 0.8 mg/dL (0.6-1.3); PROTEIN - SERUM 6.4 g/dL (6.4-8.2)
[2017-10-02 06:18] LABS: POTASSIUM - SERUM 3.5 mmol/L (3.5-5.1)
--- NOTE | 2017-10-02 08:00 | NUR ---
ASSESSMENT PER FLOW SHEET. PT WITHOUT DISTRESS.FALL PREVENTION IN PLACE.DOOR OPEN TO MONITOR
[2017-10-02 08:33] VITALS: BP 113/71
--- NOTE | 2017-10-02 10:13 | NUR ---
CALL TO SON PRIYA PHONE # [phone]. INFORMED SON PT HAS NOT BEEN EATING OR DRINKING. INFORMED SON PT HAS BEEN REFUSING ALL MEDS AND FOOD. ASK SON IF HE AND FAMILY MIGHT BE AGREEABLE TO G TUBE. SON STATED THAT HE IS POA ,BUT WOULD HAVE TO SPEAK WITH REST OF FAMILY BEFORE MAKING A DECISION. HE STATES IT WILL BE TUESDAY BEFORE HE WILL CALL WITH DECISION.
--- NOTE | 2017-10-02 12:28 | NUR ---
AGREED TO TRY THICKENED CRANBERRY JUICE,BUT WOULDNT DRINK AFTER MIXED.
--- NOTE | 2017-10-02 13:51 | NUR ---
GRAPE JUICE FROM KITCHEN PER PT REQUEST. SHE DRANK 240CC OF THICKENED GRAPEJUICE.SAYS SHE WILL DRINK MORE IN A BIT IF WE HAVE IT.STATES SHE MIGHT TAKE PILLS IN A BIT.
[2017-10-02 16:41] VITALS: BP 141/69
--- NOTE | 2017-10-02 17:41 | NUR ---
REMAINS WITHOUT CHANGE FROM INITIAL SHIFT ASSESSMENT.CONT PLAN OF CARE
[2017-10-02 19:44] VITALS: BP 135/69
--- NOTE | 2017-10-02 21:20 | NUR ---
PATIENT TOOK ALL OF HER NIGHT MEDS WITH HONEY THICK GRAPE JUICE
--- NOTE | 2017-10-02 23:30 | NUR ---
CLEANED PATIENT UP WITH NAYANA BURK AFTER THE PATIENT VOMITED
--- NOTE | 2017-10-02 23:35 | NUR ---
NAYANA BURK RESITED THE PATIENT'S IV ON THE THIRD ATTEMPT IN THE L FA
[2017-10-02 23:44] VITALS: BP 128/65
[2017-10-03 04:00] VITALS: BP 146/70
[2017-10-03 05:48] LABS: BASOPHILS 0.2 % (0-2); EOSINOPHILS 0.5 % (0-7); HEMATOCRIT 31.6 % (36.0-48.0); IMMATURE GRANULOCYTES 0.8 % (0-5); LYMPHOCYTES 25.3 % (15-50); MCH 30.7 pg (26.0-34.0); MCHC 31.6 g/dL (31.0-37.0); MCV 96.9 fL (80.0-100.0); MEAN PLATELET VOLUME 10.1 fL (7.4-10.4); MONOCYTES 7.8 % (2-11); NEUTROPHILS 65.4 % (40-80); PLATELET COUNT 325 10x3/uL (130-400); RBC 3.26 10x6/uL (4.00-5.40); RDW 14.4 % (11.5-14.5); WBC 6.4 10x3/uL (4.8-10.8)
[2017-10-03 06:16] LABS: ALBUMIN 2.9 g/dL (3.4-5.0); ANION GAP 13.1 mmol/L (8-16); BILIRUBIN - TOTAL 0.57 mg/dL (0.2-1.3); CALCIUM 8.9 mg/dL (8.5-10.1); CARBON DIOXIDE 27.1 mmol/L (21.0-32.0); POTASSIUM - SERUM 3.2 mmol/L (3.5-5.1); PROTEIN - SERUM 6.8 g/dL (6.4-8.2)
--- NOTE | 2017-10-03 07:57 | NUR ---
AWAKE AND ALERT. ORIENTED X3. NO C/O THIS AM. LUNGS HAVE EXPIRATORY CRACKLES AND RALES THROUGHOUT LUNG LOPEZ, OCCASSIONAL PRODUCTIVE COUGH NOTED. SKIN IS INTACT WITHOUT REDNESS. IV TO LEFT FOREARM IS PATNET WITHOUT REDNESS AT INSERTION SITE. WATT PATENT WITH CLEAR YELLOW URINE. DENIES NEEDS.
[2017-10-03 08:14] VITALS: BP 147/64
--- NOTE | 2017-10-03 10:00 | NUR ---
SITTING UP IN CHAIR AT BEDSIDE PER PT. DENIES NEEDS.
[2017-10-03 11:51] VITALS: BP 126/76
--- NOTE | 2017-10-03 13:22 | NUR ---
REFUSED TO EAT HER LUNCH WITH STAFF ASSISTANCE. DENIES NEEDS.
[2017-10-03 16:05] VITALS: BP 128/56
--- NOTE | 2017-10-03 17:05 | NUR ---
LATE ENTRY 1145 RECEIVED A TELEPHONE CALL FROM KELISSIE THOMAS, DAUGHTER IN LAW AND SON REGARDING DISCHARGE PLAN FOR TODAY. CONTACT [facility] NUMBER [phone] AND [phone]. THEY DO NOT WANT A FEEDING TUBE AT THIS TIME. THEY WOULD LIKE TO GIVE A PRIVATE HOME AN OPPORTUNITY TO PROVIDE CARE AND PERHAPS HELP WITH THE NUTRITION PROBLEM. THE HOME PROVIDE 24 HR/ 7 DAY/WEEK CARE . THEY HAVE SELECTED [facility]. JELENA IS THE [employer] M[employer]DER AT [phone]. DMITRI CALLED [facility] AND SPOKE WITH JELENA. SHE HAS PREPARED FOR THE PATIENT. HAS A HOSPITAL BED, OXYGEN AND OTHER DME. SHE REQUESTED AT DISCHARGE THE PATIENT BE REFERRED TO [facility]. AWAITING MD PLAN. 1700 TC TO MR AND MRS GUZMAN TO UPDATE.
--- NOTE | 2017-10-03 17:27 | NUR ---
OT NOTE: PT REQUIRED MAX A FOR POSITIONING IN BED TO REDUCE RISK OF SKIN BREAKDOWN. PT COMPLETED HYGIENE TASK WITH MOD A. PT REQUIRES EXTENSIVE CUES FOR TASK COMPLETION. THANK YOU, FELIPE MARTINEZ
--- NOTE | 2017-10-03 18:48 | NUR ---
REFUSED SUPPER TRAY AGAIN. DRANK ALMOST 200 CC TEA WITH ASSIST. NO CHANGES NOTED. DENIES NEEDS.
--- NOTE | 2017-10-03 19:55 | NUR ---
PATIENT RESTING IN BED WITH EYES CLOSED AND NO VISIBLE SIGNS OF DISTRESS. BED IN LOWEST POSITION, CALL LIGHT WITHIN REACH, AND BED ALARM ON.
[2017-10-03 20:00] VITALS: BP 107/63
[2017-10-04 04:00] VITALS: BP 118/64
[2017-10-04 06:16] LABS: BASOPHILS 0 % (0-2); EOSINOPHILS 0.2 % (0-7); HEMOGLOBIN 9.9 g/dL (12-16); IMMATURE GRANULOCYTES 0.8 % (0-5); LYMPHOCYTES 11.1 % (15-50); MCH 30.9 pg (26.0-34.0); MCHC 31.9 g/dL (31.0-37.0); MCV 96.9 fL (80.0-100.0); MEAN PLATELET VOLUME 10.3 fL (7.4-10.4); MONOCYTES 4.3 % (2-11); NEUTROPHILS 83.6 % (40-80); PLATELET COUNT 267 10x3/uL (130-400); RDW 14.5 % (11.5-14.5); WBC 6.5 10x3/uL (4.8-10.8)
[2017-10-04 06:29] LABS: BILIRUBIN - TOTAL 0.4 mg/dL (0.2-1.3); CALCIUM 8.7 mg/dL (8.5-10.1); CARBON DIOXIDE 29.6 mmol/L (21.0-32.0); CREATININE - SERUM 0.9 mg/dL (0.6-1.3); POTASSIUM - SERUM 3.6 mmol/L (3.5-5.1); PROTEIN - SERUM 6.4 g/dL (6.4-8.2)
--- NOTE | 2017-10-04 07:30 | NUR ---
AWAKE AND ALERT. ORIENTED X3. NO C/O THIS AM. LUNGS HAVE FAINT CRACKLES THROUGHOUT LUNG LOPEZ. OCCASSIONAL DRY COUGH NOTED. SKIN IS INTACT WITHOUT REDNESS. IV TO LEFT AC IS PATENT WITHOUT REDNESS AT INSERTION SITE. WATT PATENT WITH CLEAR YELLOW URINE. DENIES NEEDS. STATED SHE IS HUNGRY THIS AM.
--- NOTE | 2017-10-04 08:06 | NUR ---
SPUTUM ORDER 7 DAYS OLD. PT UNABLE TO GENERATE VITAL CAPACITY TO EXPELL SPUTUM
[2017-10-04 08:20] VITALS: BP 106/75
[2017-10-04 10:18] VITALS: BP 114/47
[2017-10-04 12:17] VITALS: BP 126/72
--- NOTE | 2017-10-04 12:25 | NUR ---
OT NOTE: PERFORMED BED MOB WITH MIN/MOD ASSIST. A/AROM EXS FOR UES. RADHA STYLES, OTR/L
--- NOTE | 2017-10-04 13:40 | NUR ---
SPOKE WITH LUCY ABOUT HOSPICE FOR HIS MOTHER HE STATED THAT HE WANTED [facility] AND THAT HIS MOM WOULD BE GOING TO HOME [facility]. SPOKE WITH DR LANIER AND ORDER RECEIVED FOR HOSPICE IF APPROPRIATE. CALLED [facility] AND SPOKE WITH SIVA.
--- NOTE | 2017-10-04 14:20 | NUR ---
LUCY CALLED AND SPOKE WITH [facility]. STATED THAT [facility] WILL BE HERE AT 3:30 TO MEET WITH PATIENT AND LUCY'S .
[2017-10-04 15:46] VITALS: BP 99/49
--- NOTE | 2017-10-04 18:53 | NUR ---
ATE ABOUT 25% OF [facility] STAFF FEEDING HER. NO CHANGES NOTED.
[2017-10-04 20:00] VITALS: BP 110/51; BP 134/70
--- NOTE | 2017-10-04 20:10 | NUR ---
PATIENT RESTING WITH EYES CLOSED AND NO VISIBLE SIGNS OF DISTRESS. BED IN LOWEST POSITION, CALL LIGHT WITHIN REACH, AND BED ALARM ON.
[2017-10-05] VITALS: BP 120/63
[2017-10-05 04:00] VITALS: BP 115/53
--- NOTE | 2017-10-05 07:30 | NUR ---
PT CONFUSED AOX1 RESP EVEN AND NONLABORED PT DENIES NEEDS AT THIS TIME IV TO LEFT FOREARM PATENT AND INTACT AT THIS TIME SRX2 BED AT LOWEST SETTING CALL LIGHT WITHIN REACH WILL CONTINUE TO MONITOR
[2017-10-05 08:36] VITALS: BP 111/56
[2017-10-05] MEDS ORDERED: PREDNISONE10 MG PO (09:01)
--- NOTE | 2017-10-05 09:12 | NUR ---
PATIENT IS BEING DISCHARGE TO HOME [facility] [address] [facility] [place] SHE WILL BE TAKEN CARE OF VP [employer] JELENA LONG AND WILL BE ON HOSPICE WITH [facility]. DAUGHTER IN LAW IN ROOM AND STATED THAT [facility] WILL BE THE ONE TO DRIVE THE PATIENT TO THIS CAREGIVER'S HOUSE. CM WILL CONTINUE TO FOLLOW AND ASSIST NEEDED FOR DISCHARGE PLANNING NEEDS.
--- NOTE | 2017-10-05 13:48 | NUR ---
IV DISCONTINUED WITH CATHETER INTACT AT THIS TIME INDWELLING WATT CATHETER REMOVED AT THIS TIME DISCHARGE INSTRUCTIONS GIVEN TO DAUGHTER AT THIS TIME PT TAKEN VIA ST[facility]ER VIA [facility] AT THIS TIME
== END 2017-10-05 13:49 | disposition home health service (06) | DRG 178 ==
LOC: D.MS 17:02 → D.SDCHOLD 09-29 13:20 → D.MS 09-29 13:37
PROVIDERS: Emergency Medicine; Family Medicine; Internal Medicine Pulmonary Disease; ADMIT Family Medicine
DX: J69.0 Pneumonitis due to inhalation of food and vomit (principal); J44.1 Chronic obstructive pulmonary disease with (acute) exacerbation; I50.22 Chronic systolic (congestive) heart failure; J96.10 Chronic respiratory failure, unspecified whether with hypoxia or hypercapnia; J44.0 Chronic obstructive pulmonary disease with (acute) lower respiratory infection; J98.11 Atelectasis; I11.0 Hypertensive heart disease with heart failure; G30.9 Alzheimer's disease, unspecified; F02.80 Dementia in other diseases classified elsewhere, unspecified severity, without behavioral disturbance, psychotic disturbance, mood disturbance, and anxiety; D63.8 Anemia in other chronic diseases classified elsewhere; K59.00 Constipation, unspecified; G25.81 Restless legs syndrome; Z79.02 Long term (current) use of antithrombotics/antiplatelets; Z99.81 Dependence on supplemental oxygen; R13.10 Dysphagia, unspecified; J98.09 Other diseases of bronchus, not elsewhere classified; E03.9 Hypothyroidism, unspecified; M81.0 Age-related osteoporosis without current pathological fracture; I48.2 Chronic atrial fibrillation; F32.9 Major depressive disorder, single episode, unspecified; I27.20 Pulmonary hypertension, unspecified; E53.8 Deficiency of other specified B group vitamins; E55.9 Vitamin D deficiency, unspecified; I25.10 Atherosclerotic heart disease of native coronary artery without angina pectoris; Z95.5 Presence of coronary angioplasty implant and graft; E87.6 Hypokalemia; Z86.718 Personal history of other venous thrombosis and embolism